=== PATIENT | female | born 1950 | race Caucasian/White ===

== ENCOUNTER 2018-10-25 09:00 | Emergency (ER) | payer BC, MEDICARE ==
[2018-10-25] MEDS ORDERED: Adacel Vial IM ONE ×2 (09:23→09:31)
[2018-10-25 09:26] VITALS: O2SAT 99
--- NOTE | 2018-10-25 10:05 | XRAY ---
Indication: Pain and swelling following fall. Comparison: None 3 views of the right wrist demonstrates mild degenerative changes of the 1st metacarpal trapezium scaphoid articulation with trapezium spurring. No other bony, articular, or soft tissue abnormalities.
--- NOTE | 2018-10-25 10:09 | XRAY ---
Indication: Pain and swelling following fall. Comparison: None 3 views of the left wrist demonstrates mild degenerative changes of the 1st metacarpal trapezium scaphoid articulation. No other bony, articular, or soft tissue abnormalities.
--- NOTE | 2018-10-25 10:09 | XRAY ---
Indication: Pain following fall. Comparison: None PA/lateral chest hyperinflated and clear with incidental calcified granulomas. Heart is not enlarged. Bony thorax intact. Impression: Nonacute hyperinflated chest with evidence for old granulomatous disease.
--- NOTE | 2018-10-25 10:09 | XRAY ---
Indication: Pain and swelling following fall. Comparison: None 3 views of the left hand demonstrates mild degenerative changes of all IP joints and 1st metacarpal trapezium scaphoid articulation. No other bony, articular, or soft tissue abnormalities.
--- NOTE | 2018-10-25 10:10 | XRAY ---
Indication: Pain and swelling following fall. Comparison: None 3 views of the right hand demonstrates mild degenerative changes of all IP joints, 1st metacarpal trapezium scaphoid articulation, and trapezium spurring. No other bony, articular, or soft tissue abnormalities.
--- NOTE | 2018-10-25 10:12 | XRAY ---
Indication: Pain and bruising following fall. Comparison: None 4 views of the facial bones demonstrates clear paranasal sinuses. No bony, articular, or soft tissue abnormalities.
--- NOTE | 2018-10-25 10:19 | ERPHSYRPT ---
- History of Present Illness Source: patient Exam Limitations: no limitations Patient Subjective Stated Complaint: fell this AM while running. states hit left side of face , chest and both hands when fell. no LOC Triage Nursing Assessment: alert and ambulatory. staets tripped thisAM while running. (avid runner) states she hit her left sife of her face, abraasion noted.. MONI. bilateral wrist pain with abrasions noted to bilateral palms. abrasion to bilateral forearms with skin tear to right upper arm. SWENSON. Physician History: Pt was jogging in the AM, her toe got cought on something and she fell on both stretched hands, hurt her chest, and her orbit and zygomatic arch of the L. Pt states, she has pain with breathing, and was concerned about ri and sternum fx, as well as facial bone fracture and wrist and hand fracture. Pt denies blurry vision, or double vision. No palpitations, or cough. No N/V/D or abdominal pain. No LOC. Occurred: just prior to arrival Method of Injury: fell Quality: constant, aching Severity of Pain-Max: mild Severity of Pain-Current: mild Extremities Pain Location: wrist: bilateral (Pain s/p fall), hand: bilateral ( Pain s/p fall) Modifying Factors: Improves With: cold therapy, pain medication Associated Symptoms: chest discomfort (over sterum from fall) Allergies/Adverse Reactions: No Known Drug Allergies Allergy (Unverified 03/31/15 16:55) Home Medications: No Home Meds [No Home Meds] 1 [facility] UD 03/31/15 [History] Hx Tetanus, Diphtheria Vaccination/Date Given: No Hx Influenza Vaccination/Date Given: Yes (2013) Hx Pneumococcal Vaccination/Date Given: No Immunizations Up to Date: No - Review of Systems Constitutional: No Fever, No Chills Eyes: No Symptoms Ears, Nose, & Throat: No Symptoms, Other (pain over the L brow from fall) Respiratory: Other (pain over sternum secondary to fall) Cardiac: No Chest Pain, No Edema, No Syncope Abdominal/Gastrointestinal: No Abdominal Pain, No Nausea, No Vomiting, No Diarrhea Musculoskeletal: Fall, Injury, Joint Pain Skin: Other (Skin tear over the forearm on R) Neurological: No Dizziness, No Focal Weakness, No Sensory Changes - Past Medical History Pertinent Past Medical History: No - Past Surgical History Past Surgical History: Yes Gastrointestinal: Hernia Repair - Social History Smoking Status: Never smoker Exposure to second hand smoke: No Drug Use: none Patient Lives Alone: No - Nursing Vital Signs Nursing Vital Signs: Initial Vital Signs Temperature 97.8 F 10/25/18 09:11 Pulse Rate 73 10/25/18 09:11 Respiratory Rate 18 10/25/18 09:11 Blood Pressure 164/83 10/25/18 09:11 O2 Sat by Pulse Oximetry 99 10/25/18 09:11 Pain Scale Pain Intensity 6 - Physical Exam General Appearance: mild distress Eyes, Ears, Nose, Throat Exam: moist mucous membranes, other (Echimosis over the orbit and zygomatic arch on the L) Neck Exam: non-tender, supple Cardiovascular/Respiratory Exam: chest non-tender, normal breath sounds, regular rate/rhythm, no respiratory distress Abdominal Exam: non-tender, No guarding Back Exam: normal inspection, No vertebral tenderness Shoulder Exam: normal inspection Elbow/Forearm Exam: normal inspection Wrist Exam: normal ROM, ecchymosis, pain Hand Exam: normal ROM, ecchymosis Neuro/Tendon Exam: normal sensation, normal motor functions Skin Exam: abrasion (over the R forearm) SpO2: 99 - Course Nursing assessment & vital signs reviewed: Yes - Radiology Exams Facial X-ray Interpretation: Negative Right Wrist X-ray Interpretation: Negative Left Wrist X-ray Interpretation: Negative Chest X-ray Interpretation: Negative Ordered Tests: Active Orders 24 hr Category Date Time Status CHEST 2 VIEWS (PA AND LAT) Stat Exams 10/25/18 09:16 Completed FACIAL BONES (MINIMUM 3 VIEWS) Stat Exams 10/25/18 09:16 Completed HAND (MINIMUM 3 VIEWS) Stat Exams 10/25/18 09:57 Completed HAND (MINIMUM 3 VIEWS) Stat Exams 10/25/18 09:57 Completed WRIST (MIN 3 VIEWS) Stat Exams 10/25/18 09:56 Completed WRIST (MIN 3 VIEWS) Stat Exams 10/25/18 09:57 Completed Medication Summary Discontinued Medications Generic Name Dose Route Start Last Admin Trade Name Freq PRN Reason Stop Dose Admin Diphtheria/Tetanus/Acell Pertussis 0.5 ml 10/25/18 09:23 10/25/18 09:29 Adacel Vial IM 10/25/18 09:24 0.5 ml .ONCE ONE Administration Diphtheria/Tetanus/Acell Pertussis Confirm 10/25/18 09:31 Adacel Vial Administered 10/25/18 09:32 Dose 0.5 ml IM .STK-MED ONE - Progress Progress: unchanged Progress Note: 10/25/18 10:23 Pt was seen and examined. ROM is intact. There is some ecchimosis over the zygomatic arch and orbit on L as well as wrist. Some skin tears on the R forearm. XRs were done and were negative for fracture, and any acute deformity. Pt is safe for d/c. Pt should rest, use ice pack and use Ibuprofen OTC as needed for pain. She should f/u with her PCP. Will see patient in: office Counseled pt/family regarding: need for follow-up - Departure Departure Disposition: Home Clinical Impression: Fall Condition: Stable Critical Care Time: No Referrals: DOCTOR,NO FAMILY [Primary Care Provider] - Additional Instructions: Ice the injured areas. Use OTC Ibuprofen for pain. F/U with PCP.
[2018-10-25 10:58] VITALS: BP 148/74; PULSE 66
== END 2018-10-25 11:00 | disposition home or self-care (01) ==
LOC: ED 09:00
DX: S00.81XA Abrasion of other part of head, initial encounter (principal); S41.111A Laceration without foreign body of right upper arm, initial encounter; M25.532 Pain in left wrist; M25.531 Pain in right wrist; S60.512A Abrasion of left hand, initial encounter; S60.511A Abrasion of right hand, initial encounter; S50.812A Abrasion of left forearm, initial encounter; S50.811A Abrasion of right forearm, initial encounter; W01.0XXA Fall on same level from slipping, tripping and stumbling without subsequent striking against object, initial encounter
CPT/HCPCS: 70150; 71046; 73110; 73130; 90471; 90715; 99283